=== PATIENT | male | born 1960 | race Caucasian/White ===

== ENCOUNTER 2018-04-19 09:57 | Day surgery (SDC) | payer OTHER, MEDICARE ==
[2018-04-18 14:46] LABS: BASOPHILS # (AUTO) 0.1 X10'3 (0-0.2); BASOPHILS % (AUTO) 0.7 % (0-1); EOSINOPHILS # (AUTO) 0.1 X10'3 (0-0.9); EOSINOPHILS % (AUTO) 1.4 % (0-6); HEMATOCRIT 44.1 % (42.0-52.0); HEMOGLOBIN 14.4 g/dl (14.0-17.9); LYMPHOCYTES # (AUTO) 1.5 X10'3 (1.1-4.8); LYMPHOCYTES % (AUTO) 15.5 % (21-51); MEAN CORPUSCULAR HEMOGLOBIN 25.3 PG (27.0-31.0); MEAN CORPUSCULAR HGB CONC 32.5 % (33.0-36.5); MEAN CORPUSCULAR VOLUME 77.7 FL (78-98); MEAN PLATELET VOLUME 8.4 FL (7.4-10.4); MONOCYTES # (AUTO) 0.9 X10'3 (0-0.9); NEUTROPHILS % (AUTO) 73.4 % (42-75); PLATELET COUNT 355 X10'3 (140-440); RED BLOOD COUNT 5.68 X10'6 (4.70-6.10); RED CELL DISTRIBUTION WIDTH 20.5 % (11.5-14.5); WHITE BLOOD COUNT 9.6 X10'3 (4.5-11.0)
[2018-04-18 14:55] LABS: ALBUMIN 3.6 G/DL (3.4-5.0); ANION GAP 8 (8-16); BLOOD UREA NITROGEN 23 MG/DL (7-18); CALCIUM 9.4 MG/DL (8.5-10.1); CHLORIDE 100 MMOL/L (99-107); GLUCOSE 133 MG/DL (70-104); POTASSIUM 4.1 MMOL/L (3.5-5.1); SODIUM 141 MMOL/L (135-145); TOTAL CARBON DIOXIDE 33.4 MMOL/L (24-32); eGFR 76 ML/MIN
[2018-04-18 14:56] LABS: INR 1.1 INR; PARTIAL THROMBOPLASTIN TIME 24 SECONDS (22-32); PROTHROMBIN TIME 10.9 SECONDS (9.0-12.0)
[2018-04-18 15:46] LABS: PLATELET ESTIMATE NORMAL
[2018-04-18 15:48] LABS: ANISOCYTOSIS 3+; ELLIPTOCYTES FEW; STOMATOCYTES FEW
[2018-04-19] VITALS (12 sets, daily range): BP systolic 111–152; BP diastolic 50–89
[~2018-04-19] VITALS: Ht 190.5 cm; Wt 128.8 kg
[~2018-04-19 09:57] MED LIST: APIX5TAB3 PO; FLEC100T2 PO; FURO-150 PO; POTA10CA44 PO
[2018-04-19] MEDS ORDERED: diphenhydrAMINE 25mg capsule PO PRN (10:20)
[2018-04-19] MEDS ORDERED: LORazepam 0.5 MG tablet PO PRN (10:20)
[2018-04-19] MEDS: normal saline 1000ml 1,000 ML IV SCH ×2 (11:21→19:26)
[2018-04-19] MEDS ORDERED: LISI10TA4 PO (11:50)
[2018-04-19] MEDS ORDERED: fentaNYL/PF 50MCG/1 ML 2ML syringe ONE (12:00)
[2018-04-19] MEDS ORDERED: heparin 1,000unit/ml 10ml vial 10 ML ONE ×2 (12:00→13:58)
[2018-04-19] MEDS ORDERED: midazolam 2 mg/2 ml injection ONE (12:00)
[2018-04-19] MEDS ORDERED: iohexol 350 MG/ML 50ML vial IV ONE (12:01)
[2018-04-19] MEDS ORDERED: iohexol 350MG/ML 100ml bottle IV ONE ×2 (12:01→13:17)
[2018-04-19] MEDS ORDERED: heparin 1,000 UNITS/NS 500ml 500 ML ONE ×2 (12:01)
[2018-04-19] MEDS ORDERED: lidocaine 1%/epinephrine 1:100,000 injection 50ml vial ONE (12:01)
[2018-04-19] MEDS ORDERED: nitroGLYCERIN-Tridil 50MG/D5W 250 ML IV ONE (12:01)
[2018-04-19] MEDS ORDERED: clopidogrel 300mg tablet ONE (14:05)
[2018-04-19 14:26] LABS: ISTAT Hct MIX 42 %PCV (42-52); ISTAT O2 SATURATION MIX VENOUS 72 % (60-80); ISTAT SOURCE MIX
[2018-04-19 14:26] LABS: ISTAT HGB ART 14.3 g/dl (14.0-18.0); ISTAT Hct ART 42 %PCV (42-52); ISTAT O2 SATURATION ARTERIAL 94 % (95-98); ISTAT SOURCE ART
[2018-04-19] MEDS ORDERED: sotalol 80mg tablet PO SCH (15:00)
[2018-04-19] MEDS ORDERED: sotalol 80mg tablet PO ONE (15:10)
[2018-04-19] MEDS ORDERED: cyclobenzaprine 10mg tablet PO PRN (15:15)
[2018-04-19] MEDS ORDERED: proCHLORperazine 10 MG/2 ml inj IV PRN (15:15)
[2018-04-19] MEDS ORDERED: acetaminophen 325mg tablet PO PRN (15:15)
[2018-04-19] MEDS ORDERED: HYDROcodone/acetaminophen 10/325mg tab PO PRN (15:15)
[2018-04-19] MEDS ORDERED: aspirin 81mg tab.chew PO ONE (15:15)
[2018-04-19] MEDS ORDERED: OXAZEpam 15mg capsule PO PRN (15:15)
[2018-04-19] MEDS ORDERED: magnesium hydroxide 30ml (MOM) UD suspension PO PRN (15:15)
[2018-04-19] MEDS ORDERED: LIDOcaine 1% 30ml preserv. free vial ONE (17:06)
[2018-04-19] MEDS: HYDROcodone/acetaminophen 10/325mg tab PO PRN ×2 (17:41→22:02)
[2018-04-19] MEDS: docusate sod 100mg capsule PO SCH (19:25)
[2018-04-19] MEDS: flecainide 50mg tablet PO SCH (19:27)
[2018-04-19] MEDS ORDERED: apixaban 5mg tablet PO SCH (20:00)
[2018-04-19] MEDS: sotalol 80mg tablet PO SCH (22:02)
[2018-04-20 03:00] VITALS: BP 114/63
[2018-04-20] MEDS: HYDROcodone/acetaminophen 10/325mg tab PO PRN ×2 (05:44→11:11)
[2018-04-20 05:50] LABS: BASOPHILS % (AUTO) 0.3 % (0-1); EOSINOPHILS # (AUTO) 0.2 X10'3 (0-0.9); EOSINOPHILS % (AUTO) 2.5 % (0-6); HEMOGLOBIN 13.3 g/dl (14.0-17.9); LYMPHOCYTES # (AUTO) 1.4 X10'3 (1.1-4.8); LYMPHOCYTES % (AUTO) 17.3 % (21-51); MEAN CORPUSCULAR HEMOGLOBIN 25.6 PG (27.0-31.0); MEAN CORPUSCULAR HGB CONC 32.6 % (33.0-36.5); MEAN CORPUSCULAR VOLUME 78.7 FL (78-98); MEAN PLATELET VOLUME 9.2 FL (7.4-10.4); NEUTROPHILS # (AUTO) 5.7 X10'3 (1.8-7.7); NEUTROPHILS % (AUTO) 67.9 % (42-75); PLATELET COUNT 331 X10'3 (140-440); RED CELL DISTRIBUTION WIDTH 20.2 % (11.5-14.5); WHITE BLOOD COUNT 8.4 X10'3 (4.5-11.0)
[2018-04-20 06:22] LABS: ANION GAP 7 (8-16); BLOOD UREA NITROGEN 23 MG/DL (7-18); BUN/CREATININE RATIO 23.5 (5.4-32.0); CALCIUM 8.1 MG/DL (8.5-10.1); CHLORIDE 102 MMOL/L (99-107); CHOL/HDL RATIO 3.5 (0.00-4.99); CHOLESTEROL 201 MG/DL (0-200); CREATININE 0.98 MG/DL (0.60-1.10); GLUCOSE 127 MG/DL (70-104); HDL CHOLESTEROL 58 MG/DL (35-60); LDL CHOLESTEROL 112 MG/DL (50-100); POTASSIUM 4.1 MMOL/L (3.5-5.1); SODIUM 140 MMOL/L (135-145); TOTAL CARBON DIOXIDE 31.4 MMOL/L (24-32); TRIGLYCERIDES 182 MG/DL (20-135); eGFR 78 ML/MIN
[2018-04-20 06:34] LABS: ANISOCYTOSIS 2+; LARGE PLATELETS FEW; PLATELET ESTIMATE NORMAL
[2018-04-20 07:00] VITALS: BP 128/74
[2018-04-20] MEDS: sotalol 80mg tablet PO SCH (07:44)
[2018-04-20] MEDS: flecainide 50mg tablet PO SCH (07:44)
[2018-04-20] MEDS: docusate sod 100mg capsule PO SCH (07:46)
[2018-04-20] MEDS ORDERED: furosemide 40mg tablet PO SCH (08:00)
[2018-04-20] MEDS ORDERED: clopidogrel 75mg tablet PO SCH (08:00)
[2018-04-20] MEDS ORDERED: apixaban 5mg tablet PO SCH (08:00)
[2018-04-20] MEDS ORDERED: potassium chloride 8mEq ER tablet PO SCH (08:00)
[2018-04-20] MEDS ORDERED: aspirin 325mg tablet PO SCH (08:00)
[2018-04-20] MEDS ORDERED: lisinopril 5mg tablet PO SCH (08:00)
[2018-04-20] MEDS ORDERED: SOTA80TA46 PO (10:32)
[2018-04-20] MEDS ORDERED: ASPI-1053 PO (10:32)
[2018-04-20] MEDS ORDERED: ATOR40TA71 PO (10:32)
[2018-04-20] MEDS ORDERED: CLOP75TA33 PO (10:32)
== END 2018-04-20 11:23 | disposition home or self-care (01) ==
LOC: SSTAY O 09:57 → PCU 3S 19:37 → SSTAY O 04-20 11:23
PROVIDERS: ATTEND Internal Medicine Cardiovascular Disease
DX: I25.118 Atherosclerotic heart disease of native coronary artery with other forms of angina pectoris (principal); I27.20 Pulmonary hypertension, unspecified; E66.01 Morbid (severe) obesity due to excess calories; E78.5 Hyperlipidemia, unspecified; G47.33 Obstructive sleep apnea (adult) (pediatric); I48.0 Paroxysmal atrial fibrillation; I45.2 Bifascicular block; I11.0 Hypertensive heart disease with heart failure; I50.30 Unspecified diastolic (congestive) heart failure; I07.1 Rheumatic tricuspid insufficiency; I49.8 Other specified cardiac arrhythmias; J44.9 Chronic obstructive pulmonary disease, unspecified; Z79.82 Long term (current) use of aspirin; Z79.01 Long term (current) use of anticoagulants; Z88.0 Allergy status to penicillin; Z88.5 Allergy status to narcotic agent; Z68.35 Body mass index [BMI] 35.0-35.9, adult; Z87.01 Personal history of pneumonia (recurrent); Z72.89 Other problems related to lifestyle; Z85.828 Personal history of other malignant neoplasm of skin; Z79.899 Other long term (current) drug therapy; Z98.890 Other specified postprocedural states
CPT/HCPCS: 36415; 80048; 80061; 82803; 83880; 85014; 85025; 85347; 85610; 85730; 87070; 93005; 93460; 99152; 99153; A6257; A6449; C1725; C1760; C1769; C1874; C9600; J1644; J2250; J3010; J3490; J7030; Q0163; Q9967; A4620

== ENCOUNTER 2023-02-04 06:59 | Day surgery (SDC) | payer MEDICARE, MEDICAID ==
[2023-02-03 10:36] LABS: BASOPHILS % (AUTO) 0.6 % (0-1); EOSINOPHILS # (AUTO) 0.2 X10'3 (0-0.9); EOSINOPHILS % (AUTO) 2.4 % (0-6); HEMATOCRIT 42.2 % (42.0-52.0); HEMOGLOBIN 13.9 g/dl (14.0-17.9); LYMPHOCYTES # (AUTO) 0.9 X10'3 (1.1-4.8); LYMPHOCYTES % (AUTO) 12.4 % (21-51); MEAN CORPUSCULAR HEMOGLOBIN 30.7 PG (27.0-31.0); MEAN CORPUSCULAR HGB CONC 32.9 g/dL (33.0-36.5); MEAN CORPUSCULAR VOLUME 93.1 FL (78-98); MONOCYTES # (AUTO) 0.8 X10'3 (0-0.9); MONOCYTES % (AUTO) 10.9 % (2-12); NEUTROPHILS # (AUTO) 5.6 X10'3 (1.8-7.7); NEUTROPHILS % (AUTO) 73.7 % (42-75); PLATELET COUNT 172 X10'3 (140-440); RED BLOOD COUNT 4.54 X10'6 (4.70-6.10); RED CELL DISTRIBUTION WIDTH 14.5 % (11.5-14.5); WHITE BLOOD COUNT 7.6 X10'3 (4.5-11.0)
[2023-02-03 10:46] LABS: ALBUMIN 3.4 G/DL (3.4-5.0); ANION GAP 7 (8-16); BLOOD UREA NITROGEN 50 MG/DL (7-18); BUN/CREATININE RATIO 30.3 (10.0-20.0); CALCIUM 9.4 MG/DL (8.5-10.1); CHLORIDE 102 MMOL/L (99-107); CREATININE 1.65 MG/DL (0.60-1.10); GLUCOSE 137 MG/DL (70-104); POTASSIUM 4.3 MMOL/L (3.5-5.1); SODIUM 138 MMOL/L (135-145); TOTAL CARBON DIOXIDE 29.3 MMOL/L (24-32); eGFR 42 ML/MIN
[2023-02-04] VITALS (13 sets, daily range): BP systolic 90–139; BP diastolic 37–97
[~2023-02-04] VITALS: Ht 190.5 cm; Wt 123.6 kg
[~2023-02-04 06:59] MED LIST changes: +ASPI-1053 PO; +ATOR40TA71 PO; +CLOP75TA33 PO; -FLEC100T2 PO; +LISI10TA27 PO; -POTA10CA44 PO; +POTA10CA85 PO; +SOTA80TA46 PO
[2023-02-04] MEDS ORDERED: normal saline 1000ml 1,000 ML IV SCH (07:15)
[2023-02-04] MEDS ORDERED: morphine 10mg/ml inj. IV ONE (07:15)
[2023-02-04] MEDS ORDERED: atropine 0.1mg/ml 10ml syringe IV ONE (07:15)
[2023-02-04] MEDS ORDERED: MIDAZolam 1mg/ml 10ml vial IV ONE (07:15)
[2023-02-04] MEDS ORDERED: amiodarone 150mg/dext, iso-os 100 ML IV ONE (07:15)
[2023-02-04] MEDS ORDERED: LORazepam 0.5 MG tablet PO ONE (07:15)
[2023-02-04] MEDS ORDERED: diphenhydrAMINE 25mg capsule PO ONE (07:15)
[2023-02-04] MEDS ORDERED: ALLO300T8 PO (07:57)
[2023-02-04] MEDS ORDERED: ALBU18HF2 INH (07:57)
[2023-02-04] MEDS ORDERED: BUME2TAB7 PO (07:57)
[2023-02-04] MEDS ORDERED: RIVA20TA PO (07:57)
[2023-02-04] MEDS ORDERED: POTA-218 PO (07:57)
[2023-02-04] MEDS ORDERED: SOTA80TA73 PO (07:57)
[2023-02-04] MEDS ORDERED: LISI2.5T14 PO (07:57)
[2023-02-04] MEDS ORDERED: CLOP75TA34 PO (07:57)
[2023-02-04] MEDS ORDERED: ATOR40TA72 PO (07:57)
[2023-02-04] MEDS ORDERED: SERT-433 PO (07:57)
[2023-02-04] MEDS ORDERED: METF-1203 PO (07:57)
== END 2023-02-04 11:30 | disposition home or self-care (01) ==
LOC: SSTAY O 06:59
PROVIDERS: ATTEND Internal Medicine Cardiovascular Disease
DX: I48.0 Paroxysmal atrial fibrillation (principal); E11.9 Type 2 diabetes mellitus without complications; E78.5 Hyperlipidemia, unspecified; G47.33 Obstructive sleep apnea (adult) (pediatric); I25.10 Atherosclerotic heart disease of native coronary artery without angina pectoris; I27.20 Pulmonary hypertension, unspecified; I07.1 Rheumatic tricuspid insufficiency; I11.0 Hypertensive heart disease with heart failure; I50.9 Heart failure, unspecified; J44.9 Chronic obstructive pulmonary disease, unspecified; E66.9 Obesity, unspecified; Z68.34 Body mass index [BMI] 34.0-34.9, adult; Z95.5 Presence of coronary angioplasty implant and graft; Z79.01 Long term (current) use of anticoagulants; Z79.84 Long term (current) use of oral hypoglycemic drugs; Z72.89 Other problems related to lifestyle; Z79.899 Other long term (current) drug therapy; Z88.0 Allergy status to penicillin; Z88.5 Allergy status to narcotic agent; Z82.3 Family history of stroke
CPT/HCPCS: 36415; 80048; 82948; 85025; 85610; 92960; 93005; J0282; J2250; J2274; J7030; A4615; A4620